=== PATIENT | female | born 1960 | race Caucasian/White ===

== ENCOUNTER 2017-09-11 08:10 | Emergency (ER) | payer OTHER ==
[2017-09-11 08:20] VITALS: RESP 16; O2SAT 98
--- NOTE | 2017-09-11 09:13 | EDPHY ---
H & P Stated Complaint: Inj to L mid finger (knuckle) while lifting a suitcase last jeromy Time Seen by Provider: 09/11/17 08:59 HPI/ROS: CHIEF COMPLAINT: Finger injury HISTORY OF PRESENT ILLNESS: The patient is a right-handed 57-year-old female who comes to the emergency department complaining of pain at the MCP joint of her left middle finger. She states that last night she was throwing luggage into the back of her car from the side and had significant pain in her middle finger. This morning the pain continued and she has some swelling at the MCP joint. When she holds her hand up the left middle finger droops with ulnar deviation. She has normal sensation and capillary refill. REVIEW OF SYSTEMS: Constitutional: denies: chills, fever, recent illness, recent injury EENTM: denies: blurred vision, double vision, nose congestion Respiratory: denies: cough, shortness of breath Cardiac: denies: chest pain, irregular heart rate, lightheadedness, palpitations Gastrointestinal/Abdominal: denies: abdominal pain, diarrhea, nausea, vomiting, blood streaked stools Genitourinary: denies: dysuria, frequency, hematuria, pain Musculoskeletal: See HPI Skin: denies: lesions, rash, jaundice, bruising Neurological: denies: headache, numbness, paresthesia, tingling, dizziness, weakness Hematologic/Lymphatic: denies: blood clots, easy bleeding, easy bruising Immunologic/allergic: denies: HIV/AIDS, transplant EXAM: GENERAL: Well-appearing, well-nourished and in no acute distress. HEAD: Atraumatic, normocephalic. EYES: Pupils equal round and reactive to light, extraocular movements intact, sclera anicteric, conjunctiva are normal. ENT: TMs normal, nares patent, oropharynx clear without exudates. Moist mucous membranes. NECK: Normal range of motion, supple without lymphadenopathy or JVD. LUNGS: Breath sounds clear to auscultation bilaterally and equal. No wheezes rales or rhonchi. HEART: Regular rate and rhythm without murmurs, rubs or gallops. ABDOMEN: Soft, nontender, normoactive bowel sounds. No guarding, no rebound. No masses appreciated. BACK: No CVA tenderness, no spinal tenderness, step-offs or deformities EXTREMITIES: Ulnar droop of left middle finger. Mild swelling to MCP joint. Normal sensation and capillary refill. Normal flexion extension NEUROLOGICAL: Cranial nerves II through XII grossly intact. Normal speech, normal gait. 5/5 strength, normal movement in all extremities, normal sensation PSYCH: Normal mood, normal affect. SKIN: Warm, dry, normal turgor, no visible rashes or lesions. Source: Patient Exam Limitations: No limitations - Personal History Current Tetanus Diphtheria and Acellular Pertussis (TDAP): No - Medical/Surgical History Hx Asthma: No Hx Chronic Respiratory Disease: No Hx Diabetes: No Hx Cardiac Disease: No Hx Renal Disease: No Hx Cirrhosis: No Hx Alcoholism: No Hx HIV/AIDS: No Other PMH: healthy - Family History Significant Family History: No pertinent family hx - Social History Smoking Status: Never smoked Alcohol Use: Sober Drug Use: None Constitutional: Initial Vital Signs Temperature (C) 36.6 C 09/11/17 08:16 Heart Rate 62 09/11/17 08:16 Respiratory Rate 16 09/11/17 08:16 Blood Pressure 97/63 L 09/11/17 08:16 O2 Sat (%) 98 09/11/17 08:16 O2 Delivery Mode Room Air Allergies/Adverse Reactions: No Known Allergies Allergy (Unverified 09/11/17 08:20) Home Medications: Medication Instructions Recorded Hydrocodone/APAP 5/325 [[place] 1 - 2 tab PO Q4H PRN #7 tab 09/11/17 5/325 (RX)] Levothyroxine [Synthroid 75 mcg 75 mcg PO DAILY06 09/11/17 (*)] Medical Decision Making - Diagnostics Imaging: Discussed imaging studies w/ call center operations manager Radiologist Procedures: Procedure: Splint placement. A forrest-tape and finger splint in extension splint was applied. After application of the splint I returned and re-examined the patient. The splint was adequately immobilizing the joint and distal to the splint the patient's circulation and sensation was intact. ED Course/Re-evaluation: I suspect the patient has ruptured her collateral ligament of the MCP joint. X- rays are unremarkable. Will forrest tape the finger to her index finger and place it in a extension splint and have her follow up with her hand surgeon in [place] Dr. Schroeder. This is who her family has seen in the past. 9:25 p.m. I spoke with her hand surgeon Dr. Sandhu in [place] who agrees with the plan and will follow up. Differential Diagnosis: Partial list of the Differential diagnosis considered include but were not limited to; fracture, tendon injury and although unlikely based on the history and physical exam, I also considered dislocation, vascular injury, nerve injury. Departure - Departure Disposition: Home, Routine, Self-Care Clinical Impression: Injury of tendon of left hand Qualifiers: Encounter type: initial encounter Qualified Code(s): S66.902A - Unspecified injury of unspecified muscle, fascia and tendon at wrist and hand level, left hand, initial encounter Condition: Fair Instructions: Tendon Rupture (ED) Additional Instructions: Follow-up with your hand surgeon in [place]. I have provided you with a referral here if needed. Referrals: Fabricio Monroy MD [Medical Doctor] - As per Instructions Prescriptions: Hydrocodone/APAP 5/325 [[place] 5/325 (RX)] 1 - 2 tab PO Q4H PRN #7 tab PRN Reason: Pain, Moderate
[2017-09-11 09:53] VITALS: BP 123/74; PULSE 77; TEMP 97.7
== END 2017-09-11 09:52 | disposition home or self-care (01) ==
DX: S66.902A Unspecified injury of unspecified muscle, fascia and tendon at wrist and hand level, left hand, initial encounter (principal); X58.XXXA Exposure to other specified factors, initial encounter; Y93.89 Activity, other specified
CPT/HCPCS: L3925